=== PATIENT | female | born 1985 | race Caucasian/White ===

== ENCOUNTER 2017-09-03 19:26 | Emergency (ER) | payer OTHER ==
[~2017-09-03] VITALS: Ht 172.7 cm; Wt 65.3 kg
[~2017-09-03 19:26] MED LIST: CARBAMAZEPINE200 M2 PO; DULOXETINE HCL30 MG PO; DULOXETINE HCL60 MG PO; LAMOTRIGINE100 MG PO; LITHIUM CARBON450 MG PO; LITHOBID300 MG PO; MACROBID100 MG PO; METRONIDAZOLE500 MG PO; MOTRIN800 MG PO; NUVARING VAGIN1 EACH VG; PARAGARD T 3801 EAC1 IY; PRISTIQ50 MG PO; ZOFRAN ODT4 MG PO
[2017-09-03 20:26] LABS: HEMATOCRIT 40.7 % (36.0-46.0); MCH 30.8 PG (29.0-34.0); MCHC 34.4 G/DL (30.0-36.0); MCV 89.5 FL (83-99); PLATELET COUNT 276 K/uL (156-360); RBC DIS.WIDTH-CV 11.4 % (11.8-14.6); RED BLOOD COUNT 4.55 M/uL (3.80-5.20); WHITE BLOOD COUNT 7.2 K/uL (4.1-10.2)
[2017-09-03 20:42] LABS: CHLORIDE 107 mEq/L (99-109); POTASSIUM 3.9 mEq/L (3.7-5.4); SODIUM 144 mEq/L (136-147)
[2017-09-03 20:44] LABS: GLUCOSE 97 mg/dL (70-99)
[2017-09-03 20:47] LABS: SERUM ETHYL ALCOHOL < 10 mg/dL
[2017-09-03 20:48] LABS: CREATININE 0.7 mg/dL (0.6-1.3); GFR ESTIMATE (CALCULATED) > 59 mL/min/
[2017-09-03 20:49] LABS: UREA NITROGEN (BUN) 11 mg/dL (9-23)
[2017-09-03 20:56] LABS: QUANTITATIVE HCG < 4.0 MIU/ML
[2017-09-03 21:22] LABS: AMPHETAMINE NEGATIVE (500 ng/mL); BARBITURATES NEGATIVE (200 ng/mL); BENZODIAZEPINES NEGATIVE (150 ng/mL); BUPRENORPHINE NEGATIVE (10 ng/mL); COCAINE NEGATIVE (150 ng/mL); METHADONE NEGATIVE (200 ng/mL); METHAMPHETAMINE NEGATIVE (500 ng/mL); OPIATES (MORPHINE) NEGATIVE (100 ng/mL); OXYCODONE NEGATIVE (100 ng/mL); PHENCYCLIDINE NEGATIVE (25 ng/mL); PROPOXYPHENE NEGATIVE (300 ng/mL); THC CANNABINOIDS PRESUMPTIVE POSITIVE (50 ng/mL); TRICYCLIC ANTIDEPRESSANTS NEGATIVE (300 ng/mL)
[2017-09-04 00:22] VITALS: BP 133/84
[2017-09-05] MEDS ORDERED: LATUDA20 MG PO (15:36)
== END 2017-09-04 00:29 | disposition home or self-care (01) ==
LOC: EME 19:26
DX: F41.9 Anxiety disorder, unspecified (principal); F60.3 Borderline personality disorder; F31.32 Bipolar disorder, current episode depressed, moderate
CPT/HCPCS: 80048; 84702; 84999; 85027; 90832; 99281; 99285; G0480

== ENCOUNTER 2017-09-05 13:26 | Inpatient (IN) | payer OTHER ==
[~2017-09-05] VITALS: Ht 172.7 cm; Wt 78.0 kg
[2017-09-05 14:05] LABS: BASOPHIL (%) 0.4 % (0-1); EOSINOPHIL COUNT 0.1 K/uL (0-0.3); HEMATOCRIT 45.8 % (36.0-46.0); HEMOGLOBIN 15.6 G/DL (11.9-15.5); IMMATURE GRANULOCYTE (%) 0.1 % (0.0-0.7); LYMPHOCYTE (%) 27.9 % (15-42); LYMPHOCYTE COUNT 1.9 K/uL (1.0-2.8); MCH 30.7 PG (29.0-34.0); MCHC 34.1 G/DL (30.0-36.0); MCV 90.2 FL (83-99); MONOCYTE (%) 6.3 % (3-12); MONOCYTE COUNT 0.4 K/uL (0-0.8); NEUTROPHIL (%) 64.3 % (45-76); NEUTROPHIL COUNT 4.4 K/uL (1.8-6.4); PLATELET COUNT 289 K/uL (156-360); RBC DIS.WIDTH-CV 11.4 % (11.8-14.6); RBC DIS.WIDTH-SD 37.7 % (39-53); RED BLOOD COUNT 5.08 M/uL (3.80-5.20); WHITE BLOOD COUNT 6.8 K/uL (4.1-10.2)
[2017-09-05 14:34] LABS: ALBUMIN 4.7 G/DL (3.2-4.8); ALKALINE PHOSPHATASE 34 IU/L (3-129); ALT (GPT) 11 IU/L (3-49); AST (GOT) 14 IU/L (2-34); CHLORIDE 106 MEQ/L (99-109); CREATININE 0.7 MG/DL (0.6-1.3); GFR ESTIMATE (CALCULATED) > 59 mL/min/; GLUCOSE 93 mg/dL (70-99); SERUM ETHYL ALCOHOL < 10 mg/dL; SODIUM 141 MEQ/L (136-147); TOTAL BILIRUBIN 0.8 MG/DL (0.0-1.0); TOTAL PROTEIN 7.2 G/DL (6.4-8.3); UREA NITROGEN (BUN) 15 mg/dL (9-23)
[2017-09-05] MEDS ORDERED: LATUDA20 MG PO (15:36)
[2017-09-05 16:10] VITALS: BP 134/78
[2017-09-05 16:22] LABS: AMPHETAMINE NEGATIVE (500 ng/mL); BARBITURATES NEGATIVE (200 ng/mL); BENZODIAZEPINES NEGATIVE (150 ng/mL); BUPRENORPHINE NEGATIVE (10 ng/mL); COCAINE NEGATIVE (150 ng/mL); METHADONE NEGATIVE (200 ng/mL); METHAMPHETAMINE NEGATIVE (500 ng/mL); OPIATES (MORPHINE) NEGATIVE (100 ng/mL); OXYCODONE NEGATIVE (100 ng/mL); PHENCYCLIDINE NEGATIVE (25 ng/mL); PROPOXYPHENE NEGATIVE (300 ng/mL); THC CANNABINOIDS NEGATIVE (50 ng/mL); TRICYCLIC ANTIDEPRESSANTS NEGATIVE (300 ng/mL)
[2017-09-06 07:57] VITALS: BP 107/68
[2017-09-06 15:43] VITALS: BP 128/77
[2017-09-07 07:57] VITALS: BP 116/73
[2017-09-07 15:36] VITALS: BP 119/60
[2017-09-08 07:59] VITALS: BP 104/62
[2017-09-08 16:12] VITALS: BP 119/75
[2017-09-09 08:30] VITALS: BP 106/68
[2017-09-09] MEDS ORDERED: BUSPAR10 MG PO (09:06)
[2017-09-09] MEDS ORDERED: LATUDA40 MG PO (09:06)
[2017-09-09] MEDS ORDERED: DULOXETINE HCL30 MG PO (09:06)
== END 2017-09-09 10:50 | disposition home or self-care (01) | DRG 885 ==
LOC: EME 13:26 → 1WEST 15:21 → EDOF 15:21 → 1WEST 15:21 → ENRESERV 16:08 → 1WEST 16:08
PROVIDERS: Emergency Medicine
DX: F31.30 Bipolar disorder, current episode depressed, mild or moderate severity, unspecified (principal); F41.1 Generalized anxiety disorder; F60.3 Borderline personality disorder
CPT/HCPCS: 80048; 80053; 84702; 84999; 85025; 85027; 90832; 90839; 97165 GO; 99281; 99284; 99285; G0480